=== PATIENT | male | born 1950 | race Caucasian/White ===

== ENCOUNTER → 2024-05-07 | Day surgery (SDC) | payer MEDICARE, BC ==
[~2024-05-07] MED LIST: FLU (Fluad Triv) TS24-25 (65UP)/MF59C/PF 45 MCG/0.5 ML Syringe IM ONE; Iopamidol-M 300 61% 15 ML VIAL ONE; Sodium Bicarbonate 2.5 MEQ/5 ML SDV ONE
[2024-05-07 09:04] VITALS: BP 136/74; TEMP 98.2
== END ==
LOC: CSHRAD 08:35
PROVIDERS: ATTEND Surgery
PROC: B02BYZZ Computerized Tomography (CT Scan) of Spinal Cord using Other Contrast (ICD-10-PCS; principal; 2024-05-07)
DX: M50.30 Other cervical disc degeneration, unspecified cervical region (principal)
CPT/HCPCS: 62284; 72126; 77003; Q9967